=== PATIENT | male | born 1940 | race Caucasian/White ===

== ENCOUNTER 2016-06-30 12:40 | Observation (INO) | payer OTHER ==
[~2016-06-30] VITALS: Ht 167.6 cm; Wt 80.9 kg
[~2016-06-30 12:40] MED LIST: AVODART0.5 MG PO; BACTROBAN OINTM22 GM TP; BALSALAZIDE DI750 MG PO; BRAND FLOMAX0.4 MG PO; CALTRATE 600600 MG PO; CHOLESTYRAMINE P4 GM PO; Coumadin,Jantoven PO; DONNATAL1 TABLET PO; ENDOCET 5-3251 EACH PO; Flomax PO; KLOR-CON20 MEQ PO; METRONIDAZOLE500 MG PO; NASACORT AQ; Proventil,Ventolin H IH; Theragran-M,Centrum, PO; predniSONE PO
[2016-06-30] MEDS ORDERED: PROAIR HFA8.5 GM IH ×2 (13:11→16:24)
[2016-06-30 14:32] LABS: EOSINOPHIL (%) 0.1 % (0-5); HEMATOCRIT 58.6 % (38.0-50.0); IMMATURE GRANULOCYTE (%) 0.4 % (0.0-0.7); IMMATURE GRANULOCYTE COUNT 0.5 K/uL; MCH 32.2 PG (29.0-34.0); MCHC 35.5 G/DL (30.0-36.0); MCV 90.9 FL (86-99); MEAN PLAT.VOLUME 9.2 uM^3 (9.0-12.4); MONOCYTE (%) 10.7 % (3-12); MONOCYTE COUNT 1.3 K/uL (0-0.8); NEUTROPHIL (%) 80.1 % (45-76); NEUTROPHIL COUNT 9.8 K/uL (1.8-6.4); PLATELET COUNT 414 K/uL (156-360); RBC DIS.WIDTH-CV 13.9 % (11.8-14.6); RBC DIS.WIDTH-SD 45.4 % (39-53); RED BLOOD COUNT 6.45 M/uL (4.00-5.50); WHITE BLOOD COUNT 12.2 K/uL (4.1-10.2)
[2016-06-30 14:47] LABS: CHLORIDE 101 mEq/L (99-109); POTASSIUM 5.9 mEq/L (3.7-5.4); SODIUM 133 mEq/L (136-147)
[2016-06-30 14:49] LABS: GLUCOSE 114 mg/dL (70-99)
[2016-06-30 14:50] LABS: ANION GAP 18 MEQ/L (2-14)
[2016-06-30 14:51] LABS: TOTAL BILIRUBIN 1.3 mg/dL (0.0-1.0)
[2016-06-30 14:52] LABS: ALKALINE PHOSPHATASE 97 IU/L (3-129)
[2016-06-30 14:53] LABS: GFR ESTIMATE (CALCULATED) 23 mL/min/
[2016-06-30 14:54] LABS: UREA NITROGEN (BUN) 48 mg/dL (9-23)
[2016-06-30 14:55] LABS: TROP-I INTERPRETATION NEGATIVE; TROPONIN-I < 0.01 ng/mL (0.0-0.30)
[2016-06-30 14:56] LABS: LIPASE 42 U/L (1.0-51.0)
[2016-06-30] MEDS ORDERED: SYMBICORT60 INHALAT IH (16:24)
[2016-06-30] MEDS ORDERED: LO-DOSE ASPIRIN81 M2 PO (16:25)
[2016-06-30] MEDS ORDERED: CENTRUM SILVER1 EAC3 PO (16:25)
[2016-06-30] MEDS ORDERED: VITAMIN D5000 UNI1 PO (16:25)
[2016-06-30] MEDS ORDERED: FISH OIL 1,2001 EAC4 PO (16:25)
[2016-06-30 16:27] LABS: CHLORIDE 103 mEq/L (99-109); POTASSIUM 4.5 mEq/L (3.7-5.4); SODIUM 134 mEq/L (136-147)
[2016-06-30] MEDS ORDERED: IPRATROPIUM BRO15 ML BOTH NARES (16:27)
[2016-06-30] MEDS ORDERED: LANSOPRAZOLE30 MG PO (16:27)
[2016-06-30 16:28] LABS: GLUCOSE 109 mg/dL (70-99)
[2016-06-30 16:30] LABS: ANION GAP 15 MEQ/L (2-14)
[2016-06-30 16:32] LABS: GFR ESTIMATE (CALCULATED) 27 mL/min/
[2016-06-30 16:33] LABS: UREA NITROGEN (BUN) 46 mg/dL (9-23)
[2016-06-30 16:55] LABS: ADD MIUA? YES; BILIRUBIN NEGATIVE; BLOOD LARGE; COLOR YELLOW ((YELLOW)); GLUCOSE (STRIP) NEGATIVE; KETONES NEGATIVE; LEUKOCYTES NEGATIVE; NITRITE NEGATIVE; PH, URINE 5.5 (5-8); PROTEIN (STRIP) NEGATIVE; SPECIFIC GRAVITY 1.018 (1.000-1.030); UROBILINOGEN 0.2 MG/DL (0.2-1.0)
[2016-06-30 17:11] LABS: EPITHELIAL CELLS 1+; WHITE BLOOD CELLS 0-5 /HPF (0-5)
[2016-06-30 17:12] LABS: BACTERIA RARE; CASTS PRESENT /LPF; CRYSTALS NONE SEEN; FINE GRANULAR CASTS 0-5 /LPF; UCUL ADDED? NO
[2016-06-30 17:13] LABS: MUCUS 1+
[2016-06-30 18:59] VITALS: BP 136/76
[2016-06-30 20:05] VITALS: BP 124/69
[2016-06-30 23:58] VITALS: BP 103/68
[2016-07-01 03:47] VITALS: BP 126/67
[2016-07-01 06:27] LABS: HEMATOCRIT 47.9 % (38.0-50.0); MCH 33.2 PG (29.0-34.0); MCHC 34.7 G/DL (30.0-36.0); MEAN PLAT.VOLUME 9.6 uM^3 (9.0-12.4); PLATELET COUNT 295 K/uL (156-360); RBC DIS.WIDTH-CV 13.7 % (11.8-14.6); RBC DIS.WIDTH-SD 47.7 % (39-53)
[2016-07-01 06:28] LABS: MCV 95.8 FL (86-99)
[2016-07-01 06:47] LABS: ANION GAP 7 MEQ/L (2-14); CHLORIDE 109 MEQ/L (99-109); GLUCOSE 100 mg/dL (70-99); POTASSIUM 4.6 MEQ/L (3.7-5.4); SAMPLE HEMOLYSIS CHECK 0; SAMPLE ICTERIC CHECK 0; SAMPLE LIPEMIA CHECK 0; SODIUM 138 MEQ/L (136-147); UREA NITROGEN (BUN) 34 mg/dL (9-23)
[2016-07-01 06:49] LABS: GFR ESTIMATE (CALCULATED) 53 mL/min/
[2016-07-01 08:18] VITALS: BP 101/58
[2016-07-01 11:44] VITALS: BP 109/62
[2016-07-01] MEDS ORDERED: ZOFRAN ODT8 MG PO (12:43)
== END 2016-07-01 13:46 | disposition home or self-care (01) ==
LOC: EME 12:40 → EDOF 17:01 → 5WEST 17:01 → EDOF 17:01 → 5WEST 18:12
PROVIDERS: Emergency Medicine; Internal Medicine
DX: E86.0 Dehydration (principal); K52.9 Noninfective gastroenteritis and colitis, unspecified; Z93.2 Ileostomy status; K51.90 Ulcerative colitis, unspecified, without complications; K21.9 Gastro-esophageal reflux disease without esophagitis; Z66 Do not resuscitate; Z88.2 Allergy status to sulfonamides; Z88.5 Allergy status to narcotic agent; Z82.5 Family history of asthma and other chronic lower respiratory diseases; Z80.0 Family history of malignant neoplasm of digestive organs; Z87.891 Personal history of nicotine dependence
CPT/HCPCS: 80048; 80048 91; 80053; 81003; 83690; 84484; 85025; 85027; 93005; 99281; 99285; G0378; J1200; J1644; J2405; J7030; J7040; J7042; J7120

== ENCOUNTER 2017-06-25 15:14 | Observation (INO) | payer OTHER ==
[~2017-06-25] VITALS: Ht 167.6 cm; Wt 83.8 kg
[~2017-06-25 15:14] MED LIST changes: +CENTRUM SILVER1 EAC3 PO; +FISH OIL 1,2001 EAC4 PO; +IPRATROPIUM BRO15 ML BOTH NARES; +LANSOPRAZOLE30 MG PO; +LO-DOSE ASPIRIN81 M2 PO; +PROAIR HFA8.5 GM IH; +SYMBICORT60 INHALAT IH; +VITAMIN D5000 UNI1 PO; +ZOFRAN ODT8 MG PO
[2017-06-25 16:12] LABS: BASOPHIL (%) 0.2 % (0-1); EOSINOPHIL (%) 1.4 % (0-5); EOSINOPHIL COUNT 0.1 K/uL (0-0.3); HEMATOCRIT 44.9 % (38.0-50.0); IMMATURE GRANULOCYTE (%) 0.5 % (0.0-0.7); LYMPHOCYTE COUNT 0.9 K/uL (1.0-2.8); MCH 33.9 PG (29.0-34.0); MCHC 35.6 G/DL (30.0-36.0); MCV 95.1 FL (86-99); MONOCYTE (%) 6.5 % (3-12); MONOCYTE COUNT 0.6 K/uL (0-0.8); NEUTROPHIL (%) 81.4 % (45-76); PLATELET COUNT 231 K/uL (156-360); RBC DIS.WIDTH-SD 45.2 % (39-53); RED BLOOD COUNT 4.72 M/uL (4.00-5.50); WHITE BLOOD COUNT 8.6 K/uL (4.1-10.2)
[2017-06-25 16:21] LABS: INTER. NORMALIZED RATIO 1.1
[2017-06-25 16:22] LABS: CHLORIDE 104 mEq/L (99-109); SODIUM 139 mEq/L (136-147)
[2017-06-25 16:23] LABS: PTT 28.8 SEC (25-37)
[2017-06-25 16:24] LABS: GLUCOSE 98 mg/dL (70-99)
[2017-06-25 16:28] LABS: CREATININE 0.8 mg/dL (0.6-1.3); GFR ESTIMATE (CALCULATED) > 59 mL/min/ (58.99-99999)
[2017-06-25 16:29] LABS: UREA NITROGEN (BUN) 11 mg/dL (9-23)
[2017-06-25 16:34] LABS: TROP-I INTERPRETATION NEGATIVE; TROPONIN-I < 0.01 ng/mL (0.0-0.30)
[2017-06-25] MEDS ORDERED: FLAX OIL1000 MG PO (19:38)
[2017-06-25 20:08] LABS: TROP-I INTERPRETATION NEGATIVE; TROPONIN-I < 0.01 ng/mL (0.0-0.30)
[2017-06-25 22:47] VITALS: BP 163/81
[2017-06-26 02:30] LABS: TROP-I INTERPRETATION NEGATIVE; TROPONIN-I 0.01 ng/mL (0.0-0.30)
[2017-06-26 04:48] LABS: HDL CHOLESTEROL 44 MG/DL (Desirable>=40); LDL CHOLESTEROL 99 mg/dL (Desirable<100); NON-HDL CHOLESTEROL 135 mg/dL (Desirable<160); TOTAL CHOLESTEROL 179 mg/dL (Desirable<200); TRIGLYCERIDES 182 MG/DL (Normal: <150)
[2017-06-26 04:50] VITALS: BP 132/72
[2017-06-26 07:38] VITALS: BP 127/76
[2017-06-26 08:21] LABS: TROP-I INTERPRETATION NEGATIVE; TROPONIN-I < 0.01 ng/mL (0.0-0.30)
[2017-06-26 11:31] VITALS: BP 139/68; BP 154/85
== END 2017-06-26 14:48 | disposition home or self-care (01) ==
LOC: EME 15:14 → EDOF 19:59 → 5WEST 19:59 → ENRESERV 20:01 → 5WEST 21:54
PROVIDERS: Emergency Medicine; Physician Assistant
DX: R07.9 Chest pain, unspecified (principal); J44.9 Chronic obstructive pulmonary disease, unspecified; E78.5 Hyperlipidemia, unspecified; K21.9 Gastro-esophageal reflux disease without esophagitis; K51.90 Ulcerative colitis, unspecified, without complications; I25.10 Atherosclerotic heart disease of native coronary artery without angina pectoris; I25.84 Coronary atherosclerosis due to calcified coronary lesion; I70.0 Atherosclerosis of aorta; R61 Generalized hyperhidrosis; R11.0 Nausea; Z93.2 Ileostomy status; Z86.711 Personal history of pulmonary embolism; Z86.718 Personal history of other venous thrombosis and embolism; Z96.651 Presence of right artificial knee joint; F17.200 Nicotine dependence, unspecified, uncomplicated; Z79.82 Long term (current) use of aspirin; Z88.5 Allergy status to narcotic agent; Z88.2 Allergy status to sulfonamides
CPT/HCPCS: 71045; 71275; 80048; 80061; 84484; 85025; 85610; 85730; 93005; 99202; 99281; 99285; G0378; J1644; J7030

== ENCOUNTER 2017-10-10 02:28 | Emergency (ER) | payer OTHER ==
[~2017-10-10] VITALS: Ht 167.6 cm; Wt 86.2 kg
[~2017-10-10 02:28] MED LIST changes: +FLAX OIL1000 MG PO
[2017-10-10 02:54] LABS: APPEARANCE CLOUDY ((CLEAR)); BILIRUBIN NEGATIVE; BLOOD MODERATE; GLUCOSE (STRIP) NEGATIVE; KETONES NEGATIVE; LEUKOCYTES NEGATIVE; NITRITE NEGATIVE; PROTEIN (STRIP) 100; SPECIFIC GRAVITY 1.012 (1.000-1.030); UROBILINOGEN 0.2 MG/DL (0.2-1.0)
[2017-10-10 02:57] LABS: HEMATOCRIT 42.4 % (38.0-50.0); HEMOGLOBIN 14.9 G/DL (12.5-16.6); MCH 33.5 PG (29.0-34.0); MCHC 35.1 G/DL (30.0-36.0); MCV 95.3 FL (86-99); PLATELET COUNT 203 K/uL (156-360); RBC DIS.WIDTH-CV 12.7 % (11.8-14.6); RBC DIS.WIDTH-SD 43.9 % (39-53); RED BLOOD COUNT 4.45 M/uL (4.00-5.50)
[2017-10-10 02:57] LABS: COLOR RED ((YELLOW))
[2017-10-10 03:07] LABS: CHLORIDE 108 mEq/L (99-109); POTASSIUM 3.5 mEq/L (3.7-5.4); SODIUM 144 mEq/L (136-147)
[2017-10-10 03:09] LABS: GLUCOSE 108 mg/dL (70-99)
[2017-10-10 03:10] LABS: TOTAL PROTEIN 6.8 g/dL (6.4-8.3)
[2017-10-10 03:11] LABS: TOTAL BILIRUBIN 1.1 mg/dL (0.0-1.0)
[2017-10-10 03:13] LABS: UCUL ADDED? YES; URINE COMMENT FIELD OBSCURED W/RBC
[2017-10-10 03:13] LABS: ALKALINE PHOSPHATASE 64 IU/L (3-129); CREATININE 1.4 mg/dL (0.6-1.3); GFR ESTIMATE (CALCULATED) 52 mL/min/ (58.99-99999)
[2017-10-10 03:14] LABS: UREA NITROGEN (BUN) 13 mg/dL (9-23)
[2017-10-10 03:15] LABS: AST (GOT) 17 IU/L (2-34)
[2017-10-10 03:15] LABS: RED BLOOD CELLS TNTC /HPF (0-5)
[2017-10-10 03:16] LABS: ALT (GPT) 20 IU/L (3-49)
[2017-10-10 04:32] VITALS: BP 130/76
== END 2017-10-10 04:33 | disposition home or self-care (01) ==
LOC: EME 02:28
DX: N40.1 Benign prostatic hyperplasia with lower urinary tract symptoms (principal); R31.9 Hematuria, unspecified; R39.15 Urgency of urination; F32.9 Major depressive disorder, single episode, unspecified; J44.9 Chronic obstructive pulmonary disease, unspecified; K21.9 Gastro-esophageal reflux disease without esophagitis; M19.90 Unspecified osteoarthritis, unspecified site; N28.1 Cyst of kidney, acquired; Z85.828 Personal history of other malignant neoplasm of skin; Z87.442 Personal history of urinary calculi; Z87.891 Personal history of nicotine dependence; Z88.2 Allergy status to sulfonamides; Z88.5 Allergy status to narcotic agent; Z96.651 Presence of right artificial knee joint; Z79.891 Long term (current) use of opiate analgesic
CPT/HCPCS: 80053; 81003; 85027; 87086; 99281; 99284